=== PATIENT | male | born 1955 | race Caucasian/White ===

== ENCOUNTER 2017-03-02 03:45 | Observation (INO) | payer OTHER ==
[~2017-03-02] VITALS: Ht 177.8 cm; Wt 97.5 kg
[~2017-03-02 03:45] MED LIST: ASPIR 8181 MG PO; COUMADIN 5 MG TA5 MG PO; DICLOFENAC SOD75 MG PO; DOK100 M1 PO; FLOMAX(MONOGRA0.4 MG PO; KEFLEX 250MG C250 MG PO; METOPROLOL SUC100 M1 PO; OXYCONTIN15 MG PO; PERCOCET 325 MG1 TA2 PO; SIMVASTATIN10 MG PO; TREXIMET 500 MG1 TAB PO
[2017-03-02] MEDS ORDERED: ZOCOR20 M1 PO (08:11)
[2017-03-02] MEDS ORDERED: PLAVIX75 M1 PO (08:12)
[2017-03-02] MEDS ORDERED: CELEBREX200 M1 PO (08:13)
[2017-03-02] MEDS ORDERED: TREXIMET 85-501 EACH PO (08:24)
[2017-03-02 19:48] VITALS: BP 118/80
--- NOTE | 2017-03-02 19:48 | PN- Neurosurgical ---
Subjective Subjective: Postop check: Patient being observed overnight for 23 hours secondary to postoperative pain and increased blood loss intraoperatively. He is not well enough to be discharged home. He is comfortable at this time after receiving several doses of IV Dilaudid although he is drowsy. He denies feeling lightheaded or dizzy Objective Vital Signs and I&Os Vital signs stable, afebrile Intake & Output 03/02 1600 03/02 0800 03/02 0000 03/01 1600 03/01 0800 03/01 0000 Intake Total Output Total Balance Patient 215 lb Weight Physical Exam: Well-developed well-nourished no apparent distress. Drowsy but arousable HEENT: Atraumatic, extraocular motion intact Neck: Supple, no lymphadenopathy Respiratory: No respiratory distress Back: Incision clean dry and intact Extremities: No edema, no calf pain neurovascularly intact distally, no deficits., Neuro: Alert and oriented x3 Psych: Mood affect normal, normal memory normal judgment. Skin: Warm and dry, no rash on exposed skin Assessment/Plan Assessment/Plan Postoperative day #0 status post bilateral L2-3 hemilaminectomy and L3 4 left- sided hemilaminectomy secondary to spinal stenosis 23 hour observation for pain management and checking of labs in the morning, CBC , 1200 blood loss intraoperative, received 660 back via Cell [employer], monitor vital signs. Pain medication as needed. Valium as needed. alps for DVT prophylaxis. oob PT consult in am 23hrs of abx for prophylaxsis Core Measures Venous Thromboembolism VTE Risk Factors Age>40 No Mechanical VTE Prophylaxis d/t N/A MechProphylax Ordered No VTE Pharm Prophylaxis d/t LowRisk-No Interven Req'd
--- NOTE | 2017-03-02 19:50 | Admission Core Measures ---
Acute Coronary Syndrome (CM) ACS Core Measures Acute Coronary Syndrome Diagnosis No Congestive Heart Failure (NEW) CHF Core Measures Congestive Heart Failure Diagnosis No Cerebrovascular Accident (NEW) CVA Core Measures CVA/TIA Diagnosis No Venous Thromboembolism VTE Core Al (View Protocol) VTE Risk Factors Age>40 No Mechanical VTE Prophylaxis d/t N/A MechProphylax Ordered No VTE Pharm Prophylaxis d/t LowRisk-No Interven Req'd Problem List As ranked by this Provider includes Assessment & Plan 1. Spinal stenosis of lumbar region at multiple levels HOME MEDS Home Med List Celecoxib (Celebrex) 200 MG CAPSULE 1 CAP PO BID antiinflammatory (Reported) Clopidogrel Bisulfate (Plavix) 75 MG TABLET 1 TAB PO DAILY valve replacement (Reported) Metoprolol Succinate (Metoprolol Succinate XL) 100 MG TAB.ER.24H 1 TAB PO DAILY AORTIC VALVE REPLACEMENT (Reported) Simvastatin (Zocor*) 20 MG TABLET 1 TAB PO DAILY cholesterol (Reported) Sumatriptan Succ/Naproxen Sod (Treximet 85-500 MG Tablet) 85 MG-500 MG TABLET 1 TAB PO DAILY NEEDED MIGRAINE (Reported)
[2017-03-02 22:00] VITALS: BP 114/74
[2017-03-03] VITALS: BP 102/64
[2017-03-03 02:00] VITALS: BP 110/68
[2017-03-03 07:00] VITALS: BP 114/76
--- NOTE | 2017-03-03 07:36 | PN- Neurosurgical ---
See Addendum Subjective Subjective: Reports anticipated back / incisional pain, which improves with percocet. Tolerating diet. No nausea. Not yet out of bed, but anticipates getting up with PT this morning. Denies dizziness. No shortness of breath. No chest pains. Voiding without difficulty. He anticipates going home today. He would prefer prescriptions going to [facility] in [place]. Objective Vital Signs and I&Os Vital Signs Date Time Temp Pulse Resp B/P B/P Pulse O2 O2 Flow FiO2 Mean Ox Delivery Rate 03/03 0700 98.4 92 16 114/76 97 Room Air 03/03 0200 97.8 82 16 110/68 95 Nasal 1.0L Cannula 03/03 0000 97.6 84 16 102/64 94 Nasal 1.0L Cannula 03/03 0000 97 Nasal 2.0L Cannula 03/02 2200 97.3 82 16 114/74 98 Nasal 2.0L Cannula 03/02 1948 97.9 74 16 118/80 98 Nasal 2.0L Cannula 03/02 1930 99 Nasal 3.0L Cannula Intake & Output 03/03 0800 03/03 0000 03/02 1600 03/02 0800 03/02 0000 03/01 1600 Intake Total 1080 279 Output Total 950 50 Balance 130 229 Intake, IV 600 79 Intake, Oral 480 200 Output, Urine 950 50 Patient 215 lb 215 lb Weight Physical Exam: General - alert & oriented x 3. comfortable. no acute distress. Lungs - clear bilaterally. no w/r/r. Cardiac - reg. s1s2. +3/6 harsh systolic ejection murmur. Abdomen - soft. nontender. Extremities - warm bilaterally. no c/c/e. calves soft and nontender b/l. sensation equal. 5/5 df/pf/ehl. Current Medications: Current Medications Sig/Malcolm Start time Last Medication Dose Route Stop Time Status Admin Acetaminophen 650 MG Q6P PRN 03/02 1900 AC PO Acetaminophen 1,000 MG .STK-MED ONE 03/02 1331 DC IV 03/02 1332 Cefazolin Sodium 2 GM IQ8 03/03 0000 AC 03/02 N/A 1 UNIT IV 03/03 0829 2347 Cefazolin Sodium 2 GM ONCE ONE 03/02 1755 DC N/A 1 UNIT IV 03/02 1824 Cefazolin Sodium 2,000 MG ONCE 03/02 0000 DC IV 03/02 2359 Dextrose/Sodium 1,000 ML .[id number] 03/02 190 AC 03/02 Chloride IV 1953 Diazepam 5 MG TID PRN 03/02 1830 AC 03/02 PO 2237 Fentanyl Citrate 100 MCG .STK-MED ONE 03/02 08 DC IM 03/02 0824 Hydromorphone HCl 1 MG Q2-3 HRS NEEDED.. 03/02 1900 AC 03/02 IV 2206 Hydromorphone HCl 2 MG .STK-MED ONE 03/02 0822 DC IM 03/02 0823 Ketorolac 30 MG Q8P PRN 03/02 1900 AC 03/02 Tromethamine IV 03/05 1859 2039 Meperidine HCl 50 MG .STK-MED ONE 03/02 1420 DC IM 03/02 1421 Meperidine HCl 50 MG .STK-MED ONE 03/02 1345 DC IM 03/02 1346 Metoprolol Succinate 100 MG DAILY 03/03 1000 AC PO Midazolam HCl 2 MG .STK-MED ONE 03/02 08 DC IM 03/02 0824 Ondansetron HCl 4 MG Q6P PRN 03/02 1900 AC IV Oxycodone/ 1 TAB Q4P PRN 03/02 1900 AC Acetaminophen PO Oxycodone/ 2 TAB Q4P PRN 03/02 1900 AC 03/03 Acetaminophen PO 0325 Promethazine HCl 12.5 MG Q6P PRN 03/02 1900 AC IV 03/09 1829 Assessment/Plan Assessment/Plan This 61 year old male with hx htn, hx tia, hx AVR, is POD#1 s/p L2 complete laminectomy, L3 left hemilaminectomy and decompression, for L2-3 and L3-4 spinal stenosis and radiculopathy tolerating diet. d/c iv fluids pain control as ordered PT eval this morning oob/ambulation alps - dvt ppx betsy-operative ancef f/u labs placed in observation for anticipated discharge to home today will d/w Core Measures Venous Thromboembolism VTE Risk Factors Age>40 No Mechanical VTE Prophylaxis d/t N/A MechProphylax Ordered No VTE Pharm Prophylaxis d/t LowRisk-No Interven Req'd
--- NOTE | 2017-03-03 07:47 | Surg Short-stay <48hrs Dis Sum ---
Visit Information Visit Dates Admission Date: 03/02/17 Discharge Date: 03/03/17 Surgical Short Stay DC Summary Admission Diagnosis: L2-3 and L3-4 spinal stenosis and radiculopathy Final Diagnosis: same as above, s/p s/p L2 complete laminectomy, L3 left hemilaminectomy and decompression Procedure(s): SURGERY DATE: 03/02/17 L2 complete laminectomy, L3 left hemilaminectomy and decompression Summary/Significant Findings: Electively scheduled L2 complete laminectomy, and L3 left hemilaminectomy and decompression done by for pre-op diagnosis of L2-3 and L3-4 spinal stenosis and radiculopathy. Placed in observation status overnight for pain control and PT eval. Stable for discharge to home on post-op day#1 once evaluated by PT, pain controlled, and tolerating a diet. His plavix was held pre -operatively and post-operatively. This was discussed with his switch foreman, , who stated he is comfortable with him being off plavix for as long as necessary as he does not have coronary artery disease. Condition at Discharge: stable Discharge Disposition: home or self care Discharge instructions provided to patient/family: Yes Post discharge follow-up plan: 2 week follow up appointment he has been advised to remain off plavix until further advised by staple removal around post-op day#14 Copies to: Farhad Dunn MD; Donny FORMAN,Kermit Cornejo
--- NOTE | 2017-03-03 07:51 | Patient Discharge Instructions ---
Discharge Instructions General Discharge Information You were seen/treated for: L2-3 and L3-4 spinal stenosis and radiculopathy You had these procedures: Surgery date: 03/02/17 L2 complete laminectomy, L3 left hemilaminectomy and decompression Watch for these problems: fever>101.3, increased pain, redness/swelling/drainage, dizziness, shortness of breath, chest pains Call Surgeon to remove: [place] No bath, but you may shower: Yes Other wound care: dry guaze dressing change daily. will need kwan removed around post-op day#14 Diet Continue normal diet: Yes Recommended Diet: Heart Healthy Activity Full Activity/No Limits: No Activity Self Limited: Yes Pounds, do NOT lift more than: 10 Activity Limited to: Weight bear as tolerated Other activity limits: no heavy lifting. no strenuous activity. Acute Coronary Syndrome Inclusion Criteria At DC or during hospital stay patient has or had the following: ACS DIAGNOSIS No Discharge Core Measures Meds if any: Prescribed or Continued at Discharge Meds if any: NOT Prescribed or Continued at Discharge Congestive Heart Failure Inclusion Criteria At DC or during hospital stay patient has or had the following: CHF DIAGNOSIS No Discharge Core Measures Meds if any: Prescribed or Continued at Discharge Meds if any: NOT Prescribed or Continued at Discharge Cerebrovascular accident Inclusion Criteria At DC or during hospital stay patient has or had the following: CVA/TIA Diagnosis No Discharge Core Measures Meds if any: Prescribed or Continued at Discharge Meds if any: NOT Prescribed or Continued at Discharge Venous thromboembolism Inclusion Criteria VTE Diagnosis No VTE Type NONE VTE Confirmed by (Test) NONE Discharge Core Measures - Per Current guidelines, there needs to be overlap - treatment for the first 5 days of Warfarin therapy. - If discharged on Warfarin prior to 5 days of - overlap therapy, the patient will need to be - assessed for post discharge needs including - *Post discharge parental anticoagulation - *Warfarin and/or parental anticoagulation education - *Follow up date to check INR post discharge At least 5 days overlap therapy as Inpatient No Meds if any: Prescribed or Continued at Discharge Note: Overlap Therapy is Warfarin and Anticoagulant Meds if any: NOT Prescribed or Continued at Discharge
[2017-03-03] MEDS ORDERED: PERCOCET 5-3251 EACH PO ×2 (07:55→08:33)
[2017-03-03] MEDS ORDERED: VALIUM5 M2 PO ×2 (07:55→08:33)
[2017-03-03] MEDS ORDERED: COLACE100 M1 PO ×2 (07:55→08:33)
[2017-03-03 08:21] VITALS: BP 134/72
[2017-03-03 09:25] LABS: ABSOLUTE BASOPHIL COUNT 0 /CUMM (0.0-0.2); ABSOLUTE EOSINOPHIL COUNT 0 /CUMM (0.0-0.7); ABSOLUTE GRANULOCYTE CT 14.4 /CUMM (1.4-6.5); ABSOLUTE LYMPH COUNT 1.2 /CUMM (1.2-3.4); ABSOLUTE MONOCYTE COUNT 1.7 /CUMM (0.10-0.60); BASOPHIL % 0 % (0.0-2.0); EOSINOPHIL % 0 % (0-5); MEAN CORPUSCULAR HGB 31.9 PG (27.0-31.0); MEAN CORPUSCULAR HGB CONC 34.3 G/DL (33.0-37.0); MEAN PLATELET VOLUME 8.5 FL (7.4-10.4); PLATELET COUNT 121 /CUMM (130-400); RBC DISTRIBUTION WIDTH 12.9 % (11.5-14.5); RED BLOOD CELL CT 3.85 /CUMM (4.70-6.10)
[2017-03-03 09:28] LABS: GRANULOCYTE % 83.1 % (42.2-75.2)
[2017-03-03 09:39] LABS: HEMATOCRIT 35.8 % (42-52)
--- NOTE | 2017-03-03 10:26 | RADIOLOGY REPORT ---
EXAMINATION: CR ABDOMEN/INTRAOPERATIVE FLUOROSCOPY CLINICAL INDICATION: L2-L3, L3-L4 decompressive laminectomy in OR. COMPARISON: CT scan of the lumbar spine dated 01/27/2017. TECHNIQUE/FINDINGS: Fluoroscopic equipment was dedicated to the operating room for the performance of an intraoperative procedure. Several (3) spot films were acquired and are archived in PACS detailing surgical marker overlying the posterior facet joint of L2-L3. Please refer to operative notes for procedural detail. FLUOROSCOPY TIME: 0.2 minutes. IMPRESSION: Administrative dictation for intraoperative fluoroscopy and image archiving in PACS. Please refer to operative notes for details.
[2017-03-03 10:36] LABS: WHITE BLOOD CELL COUNT 17.3 /CUMM (4.8-10.8)
[2017-03-03 14:06] VITALS: BP 100/58
--- NOTE | 2017-03-12 18:45 | Operative Report ---
Operative/Inv Procedure Report Surgery Date: 03/02/17 Name of Procedure: 1) L2 Bilateral Decompressive Hemilaminotomies With L2-L3 Bilateral Partial Medial Facetectomies, Medial Nerve Root Exit Zone (Right Expanding And Left Extensive) Foraminotomies And Complete Decompression Of Traversing And Exiting Neural Elements (Shamika/Tsering, P.A.-C) 2) L3 Left Decompressive Hemilaminotomy With L3-L4 Left Partial Medial Facetectomy, Medial Nerve Root Exit Zone Extensive Foraminotomy And Complete Decompression Of Traversing And Exiting Neural Elements (Shamika/Tsering, P.A.- C) Pre-Operative Diagnosis: Primary Surgically Treated Diagnoses: 1) L2-L3 Multizone (Central Canal, Bilateral Lateral Recess And Bilateral Foraminal) And L3-L4 Left Lateral Zone (Lateral Recess And Foraminal) Disk Space Level Lumbar Spinal Stenosis 2) L2-L3 And L3-L4 Lumbar Spondylosis Associated With Left Lumbar Radiculopathy 3) L2-L3 And L3-L4 Lumbar Intervertebral Disc Disorder Associated With Left Lumbar Radiculopathy 4) Left Lower Extremity Mid-Lumbar Distribution Positional And Claudicating Radiculopathy (Radiating Pain Without Other Symptoms) 5) L2-L3 And L3-L4 Lumbar Spondylosis 6) L2-L3 And L3-L4 Hypertrophic And Neurocompressive Degenerative Lumbar Facet Arthropathy And Osteoarthritis Post-Operative Diagnosis: Same as preoperative diagnosis list with the addition of: Intraoperative And Postoperative Diagnoses Relevant To Postoperative Care: 1) L2-L3 And L3-L4 Potential Increased Postoperative (Post-Decompression) Microinstability Requiring Acute Postoperative Activity Limitation And Circumferential Lumbar Compression Orthosis Use For Optimized Symptom Control, Stabilization, Postoperative Function And Overall Outcome 2) Expected Acute Postoperative Lumbar Region Pain Requiring Potentially Sedating Postoperative Intravenous Narcotic Analgesic Pain Medication, Prolonged Recovery Room Observation And Final Assessment Of Symptom Control And Independent Functional Status Per Protocol Prior To Determination Of Safety For Same Day Home Discharge Status Following Standard And Uncomplicated But Extensive Multilevel Lumbar Decompression 3) Expected Acute Postoperative Lumbar Region Muscular Spasm Requiring Potentially Sedating Postoperative Muscle Relaxant Medication Following Extensive Surgery Described Above 4) L2 And L2-L3 Bilateral With L3 And L3-L4 Right Acute Lumbar Posterior And Posterolateral Osseous Decompression Postprocedural Status Estimated Blood Loss: 1200 ml estimated blood loss with 660 ml cell saver return Surgeon/Animal Surgeon: SHAMIKA FORMANCANDY - Primary Admitting Orthopaedic Surgeon Surgical Providers: Candy Wick M.D. - Orthopaedic Spine Surgeon Sachin Cagle P.A.-C - Sub Plant Manager Anesthesia: general endotracheal tube Monitors: Standard general anesthesia and other perioperative monitoring was performed per anesthesia. Refer to anesthesia and intraoperative electrophysiological monitoring records for details. IV Fluids: Standard anesthesia fluid management was performed without requirement for additional or emergent fluid resuscitation. Refer to anesthesia records for details. Implants: Implants Placed: None Graft Placed: None Urine Output: Refer to anesthesia records for details. Drains: None Specimens: None Complications: None Operative/Procedure Note Note: Preoperative Holding Area Assessment/Preparation: The patient was evaluated in the preoperative holding area prior to surgery and no clinical changes or contraindications to surgical intervention were documented compared to the preoperative office and clearance evaluations. His left proximal lower extremity radiating positional and claudicating pain was unchanged from clearance examinations. As in the office, the patient was otherwise grossly neurovascularly intact in both lower extremities to standard testing. There were no multiple, bilateral or sacral root distribution sensory, motor, reflex, coordination or ambulatory changes to suggest acute increase in neural element compression or impending cauda equina syndrome that might be associated with increased neurological intraoperative risk based on preoperative assessment. The surgical plan and site were confirmed with the patient and preoperative paperwork was finalized. The region of the intended surgical site was cleansed, prepped and marked per protocol. The primary surgeon, anesthesia care team members, and operating room staff confirmed the patient identity, surgical procedure, and operative site as well as other clinical details with the patient in an initial documented preoperative confirmation (awake time out ) prior to the administration of sedation or anesthesia. The patient confirmed that he had discontinued his anticoagulant medication at least 7 days prior to surgery. It should be noted that, despite the patient holding his Plavix the recommended number of days prior to surgery, his blood loss was greater than usual for this type of procedure possibly associated with lingering anticoagulant effect particularly in the face of epidural venous congestion secondary to spinal stenosis. His history of anticoagulant treatment along with the plan for multilevel and (at least one level) bilateral osseous resection and decompression warranted use of cell saver for this procedure. Prior to receiving any preoperative medications, he also confirmed his NPO status since midnight. Surgical Procedure: The procedure was performed by Dr. Wick who was present and served as the primary surgeon for all critical intraoperative and perioperative decisions and interventions. The assistance of a specialty trained surgical physician anatomic pathology assistant was critical for safe completion of all phases of the procedure, particularly for maintenance of clear visualization in the operative field and for protected neural element retraction. Sachin Cagle P.A.-C assisted in this capacity throughout each critical phase of the procedure. Set-Up/Positioning/Exposure - The patient was brought to the operating room in stable condition and underwent uncomplicated induction of general anesthesia, intubation, and placement of all appropriate monitors, lines and catheters without difficulty. Administration of 2 grams of IV Ancef based on patient body mass was given for surgical prophylaxis and was completed at least 30 and less than 60 minutes prior to making an incision. The patient was positioned prone on the Omer table in typical fashion for a mid-lumbar decompression taking care to protect and stabilize the spine during transfer, avoid positions of nerve stretch, pad all pressure points, and support the head without any pressure on the eyes using a foam head rest and head-holding frame. The arms were abducted less than 90 degrees at the shoulders, flexed less than 90 degrees at the elbows and supported on well-padded arm-boards with additional foam padding from the axillary regions to the hands with all pressure points either fully padded or suspended without any contact at all between pads. The primary surgeon, anesthesia care team, and operating room staff again documented the patient identity, surgical procedure, and operative site as well as other clinical details in a final documented confirmation (final time out) prior to beginning the procedure. Loupe magnification was used throughout the appropriate portions of the procedure. After sterile prep and drape using standard techniquewith DuraPrep, an incision was mapped, infiltrated with 0.5% Marcaine local anesthetic with epinephrine, and made extending longitudinally from the superior tip of the L2 spinous process to the superior tip of the L4 spinous process overlying the intended L2, L2-L3, L3 and L3-L4 operative laminar and interlaminar levels. This incision extended upward from the superior margin of his previous lower lumbar incision which was well healed. The two incisions only overlapped slightly with the subcutaneous and deep dissection for thus surgery being fully separate from his old surgical site. Hemostasis was achieved using Bovie and Bipolar electrocautery beginning with the incision and continuing throughout the procedure with settings appropriate to each progressive level. The lumbosacral fascia was divided over the left side of the presumptive L2 and superior L3 spinous process tips as well as the bridging interspinous ligament segment based on preoperative palpation and fluoroscopic localization using the Bovie electrocautery which was also used to maintain hemostasis throughout the exposure. Care was taken to preserve the interspinous ligament so as to maintain optimal postoperative stability and motion segment ligamentous tension. The dissection was then carried down the left side of the middle and inferior L2 spinous process, the interspinous space and the superior margin of the L3 spinous process and then extended laterally to expose the corresponding laminae and interlaminar space at that level out to the edge of the left facet capsule which was preserved. The Lim retractor was placed with lateral blunt serrated ("toothed") blade and medial interspinous hook of appropriate length to provide optimal retraction and visualization. The dissected interlaminar space was marked with a curved curette placed under the inferior leading edge of the superior lamina and confirmed to be at the intended interspace on cross-table lateral radiograph. Intraoperative findings of multilevel lumbar advanced degenerative disk disease correlated well with the preoperative radiographic studies and no obvious interval change or additional abnormality was noted. The alignment of the spine on this intraoperative localization radiograph was noted to be normal and unchanged from preoperative office studies. There was no evidence of gross or occult instability on this intraoperative study to suggest that operative stabilization would be required. Once the appropriate levels were fluoroscopically confirmed, dissection was continued bilaterally to fully expose both intended interlaminar spaces at the L2-L3 level and the left interlaminar space at L3-L4 out to the capsules of the facet joints which were preserved. Attention was then turned to the decompression portion of the procedure. Hemilaminotomy/Discectomy/Decompression - The lateral margin of the pars interarticularis of L2 and L3 were identified so as to insure that the hemilaminotomy did not approach, thin or destabilize this region. Left L2 inferior hemilaminotomy was first performed by thinning the inferior edge of the L2 lamina in a tapered fashion using the [place] drill followed by piecemeal resection of the deep laminar cortex using Kerrison rongeurs after dissecting under the leading edge with a curved curette to free any underlying adhesions. The inferior hemilaminotomy of L2 was nearly sufficient to adequately and safely access and decompress the canal in this case. Only minimal additional interlaminar hemilaminotomy (with resection of the superior margin of L3) was required to completely decompress the most severe interlaminar region of the stenosis. The L2 left hemilaminotomy was carried out laterally to the level of the medial margin of the facet superficially and to the level of the medial wall of the L3 pedicle within the canal taking care not to violate the posterior facet capsule or excessively thin the pars interarticularis. This dissection provided sufficient canal access in this patient to allow partial medial facetectomy and lateral canal decompression without requiring a full laminectomy. The cephalad edge of the ligamentum flavum was dissected from its laminar attachment and elevated with a curved curette to insure that there were no epidural adhesions dorsally. The ligamentum was quite thickened, particularly in the dorsolateral canal associated with the facet hypertrophy documented on preoperative studies, and appeeared to be a significant contribution to the lateral recess stenosis. The elevated ligamentum was fully resected within the hemilaminotomy opening using Kerrison rongeurs. This provided excellent exposure of the canal with full visualization and a safe plane for access to the hypertrophic and compresssive medial wall of the facet. A partial medial facetectomy was performed in piecemeal fashion using Kerrison rongeurs after careful dissection to define a clear plane all the way to the medial pedicle wall and formainal opening using a curved curette. No significant adherent, tethering or compressive epidural fibrosis was identified and so no epidural or perineural dissection, neurolysis or mobilization of the neural elements was required. There was no significant disk herniation suggested on preoperative MRI and no intraoperative evidence of neural element elevation or other finding to suggest a residual unidirectional component of compression from the disk spaces or ventral epidural space persistent following dorsal and dorsolateral decompression. Consequently, no ventral dissection was required or performed in this case. The axilla of the traversing root was checked and no fibrotic tethering was found that might cause acute angle "kinking" or other focal compression at the exit of the nerve from the thecal sac. Thus there was no significant dissection required in the axillary zone. Once the lateral recess decompression was completed, the medial foraminal nerve root exit zone was readily accessible. This medial zone was quite stenotic by palpation with a nerve hook confirming the preoperative MRI and CT findings. Undercutting extensive foraminotomy was performed to the level of the mid- foraminal (mid-pedicular) level using Kerrison rongeurs. Once this decompression was complete the foramen was found to be widely patent with both a [place] instrument passed dorsally and a nerve hook passed in all zones adjacent to the exiting root without resistance. Attention was then turned to the right side at L2-L3 and the left side at L3-L4 which were addressed using identical technique to that described above including exposure, hemilaminotomy, partial medial faceteectomies and foraminotomies ( expanding on the right, extensive to th mid-foraminal, mid-pedicular level on the more symptomatic anc compressed left side). As at the L2-L3 left site, a similar degree of central, lateral recess and foraminal degenerative hypertrophy and stenosis was identified causing traversing and exiting neural element compression consistent with the preoperative radiologic findings. After decompression all neural elements exited freely. Moderate irritability and hyperactive neural activity associated with muscle firing was noted from even the very gentle mechanical stimulus required for decompression. These hyperactive responses ceased almost immediately once the decompression was completed. Hemostasis of osseous and epidural bleeding was achieved using Thrombin soaked Gelfoam and paddies gently applied and removed by irrigation with all bleeding controlled. Where necessary, bleeding from the laminectomy edges was controlled with a small amount of bone wax applied using the back of a [place] with any residua removed. Closure/Recovery - The surgical site was thoroughly irrigated and hemostasis was carefully achieved prior to closure. FloSeal (5 cc) was placed in the epidural space and along the margins of the laminotomy sites where helpful for osseous, soft tissue and epidural hemostasis. Several pieces of Thrombin-soaked Gelfoam was cut to match the size of the hemilaminotomy defects and placed over the dorsal surface of the lateral thecal sac and traversing nerve root within each opening so as to minimize epidural fibrotic adhesions to the decompressed neural elements. The surgical site was found to be dry at the end of the procedure and consequently no drain was needed. Initial counts were correct prior to closure. The deep lumbar muscular layer was reapproximated to the spinous process and interspinous tissue using #0 Vicryl interrupted suture technique so as to minimize open subfascial space for hematoma collection while facilitating reattachment to the osseous structures. The fascial layer was reapproximated in the midline and secured to the spinous process tips and interspinous process ligament segments in a [id number] closure so as to reestablish musculoskeletal mechanics as close to normal as possible using #0 Vicryl interrupted, [id number] suture technique. The deep suprafascial closure was performed with #2-0 Vicryl interrupted, simple suture technique. The superficial subcutaneous layer was closed with #3-0 undyed Vicryl inverted, interrupted, simple sutures. The skin was closed using kwan with the edges everted. A standard, sterile Xeroform dressing was placed, covered with folded fluff 6x6 gauze and ABD pads and held with [place] with good surgical site and bilateral drain site coverage. All counts were correct prior to removing the drapes. Recovery Room Assessment: The patient was transported to the recovery room in stable condition where gross neurological examination showed normal function with no deficits or worsening compared to his pre-operative assessments on initial recovery from anesthesia. In fact, the patient reported subjective improvement in his left proximal lower extremity resting and positional radiating pain compared to preoperative assessment. The response of his primary claudicating component of radiating pain will obviously have to await mobilization postoperatively, however the patient is quite encouraged at this early timepoint as he feels that his nagging baseline of resting radiculopathy is already detectably improved. The patient will follow the usual postoperative protocol for mid-lumbar decompressive discectomy with some adjustments and accommodations made to the standard protocol because of the degree of preoperative multilevel stenosis, multilevel degenerative changes and desire to return as early as possible to a high level of function including vigorous work and recreational activities. His postoperative care plan will include early mobilization, oral medication pain control and same day home discharge planning with instructions to mobilize frequently but to avoid lumbar motion or prolonged unsupported upright sitting. Given the extent of his surgery and his comorbidities, it would be quite appropriate for the patient to require overnight observation and to delay discharge plans until tomorrow morning particularly if pain control or mobilization are difficult especially given that the patient lives alone. Primarily because of his concomitant moderate degenerative disk disease he will use a compression brace during the initial phase of healing for both stability and some distraction so as to optimize fibrous intervertebral disk space stabilization and healing. Lower extremity (particularly gentle hip and knee) motion is encouraged to promote longitudinal nerve motion and minimize fibrous neural tethering during the fibrous consolidation and motion segment stabilization healing phase. Outpatient rehabilitation program will be arranged either through the office or at school to begin slowly but progressively at approximately 4 weeks after surgery assuming standard and uncomplicated postoperative course and following clearance at initial postoperative follow-up assessment. Discharge Disposition: PACU CC: Shamika FORMAN,Candy Cam; Sachin Cordero no clinical changes or contraindications to surgical intervention were documented compared to the preoperative office and clearance evaluations. His left proximal lower extremity radiating positional and claudicating pain was unchanged from clearance examinations. As in the office, the patient was otherwise grossly neurovascularly intact in both lower extremities to standard testing. There were no multiple, bilateral or sacral root distribution sensory, motor, reflex, coordination or ambulatory changes to suggest acute increase in neural element compression or impending cauda equina syndrome that might be associated with increased neurological intraoperative risk based on preoperative assessment. The surgical plan and site were confirmed with the patient and preoperative paperwork was finalized. The region of the intended surgical site was cleansed, prepped and marked per protocol. The primary surgeon, anesthesia care team members, and operating room staff confirmed the patient identity, surgical procedure, and operative site as well as other clinical details with the patient in an initial documented preoperative confirmation (awake time out ) prior to the administration of sedation or anesthesia. The patient confirmed that he had discontinued his anticoagulant medication at least 7 days prior to surgery. It should be noted that, despite the patient holding his Plavix the recommended number of days prior to surgery, his blood loss was greater than usual for this type of procedure possibly associated with lingering anticoagulant effect particularly in the face of epidural venous congestion secondary to spinal stenosis. His history of anticoagulant treatment along with the plan for multilevel and (at least one level) bilateral osseous resection and decompression warranted use of cell saver for this procedure. Prior to receiving any preoperative medications, he also confirmed his NPO status since midnight. Surgical Procedure: The procedure was performed by Dr. Wick who was present and served as the primary surgeon for all critical intraoperative and perioperative decisions and interventions. The assistance of a specialty trained surgical physician anatomic pathology assistant was critical for safe completion of all phases of the procedure, particularly for maintenance of clear visualization in the operative field and for protected neural element retraction. Sachin Cagle P.A.-C assisted in this capacity throughout each critical phase of the procedure. Set-Up/Positioning/Exposure - The patient was brought to the operating room in stable condition and underwent uncomplicated induction of general anesthesia, intubation, and placement of all appropriate monitors, lines and catheters without difficulty. Administration of 2 grams of IV Ancef based on patient body mass was given for surgical prophylaxis and was completed at least 30 and less than 60 minutes prior to making an incision. The patient was positioned prone on the Omer table in typical fashion for a mid-lumbar decompression taking care to protect and stabilize the spine during transfer, avoid positions of nerve stretch, pad all pressure points, and support the head without any pressure on the eyes using a foam head rest and head-holding frame. The arms were abducted less than 90 degrees at the shoulders, flexed less than 90 degrees at the elbows and supported on well-padded arm-boards with additional foam padding from the axillary regions to the hands with all pressure points either fully padded or suspended without any contact at all between pads. The primary surgeon, anesthesia care team, and operating room staff again documented the patient identity, surgical procedure, and operative site as well as other clinical details in a final documented confirmation (final time out) prior to beginning the procedure. Loupe magnification was used throughout the appropriate portions of the procedure. After sterile prep and drape using standard techniquewith DuraPrep, an incision was mapped, infiltrated with 0.5% Marcaine local anesthetic with epinephrine, and made extending longitudinally from the superior tip of the L2 spinous process to the superior tip of the L4 spinous process overlying the intended L2, L2-L3, L3 and L3-L4 operative laminar and interlaminar levels. This incision extended upward from the superior margin of his previous lower lumbar incision which was well healed. The two incisions only overlapped slightly with the subcutaneous and deep dissection for thus surgery being fully separate from his old surgical site. Hemostasis was achieved using Bovie and Bipolar electrocautery beginning with the incision and continuing throughout the procedure with settings appropriate to each progressive level. The lumbosacral fascia was divided over the left side of the presumptive L2 and superior L3 spinous process tips as well as the bridging interspinous ligament segment based on preoperative palpation and fluoroscopic localization using the Bovie electrocautery which was also used to maintain hemostasis throughout the exposure. Care was taken to preserve the interspinous ligament so as to maintain optimal postoperative stability and motion segment ligamentous tension. The dissection was then carried down the left side of the middle and inferior L2 spinous process, the interspinous space and the superior margin of the L3 spinous process and then extended laterally to expose the corresponding laminae and interlaminar space at that level out to the edge of the left facet capsule which was preserved. The Lim retractor was placed with lateral blunt serrated ("toothed") blade and medial interspinous hook of appropriate length to provide optimal retraction and visualization. The dissected interlaminar space was marked with a curved curette placed under the inferior leading edge of the superior lamina and confirmed to be at the intended interspace on cross-table lateral radiograph. Intraoperative findings of multilevel lumbar advanced degenerative disk disease correlated well with the preoperative radiographic studies and no obvious interval change or additional abnormality was noted. The alignment of the spine on this intraoperative localization radiograph was noted to be normal and unchanged from preoperative office studies. There was no evidence of gross or occult instability on this intraoperative study to suggest that operative stabilization would be required. Once the appropriate levels were fluoroscopically confirmed, dissection was continued bilaterally to fully expose both intended interlaminar spaces at the L2-L3 level and the left interlaminar space at L3-L4 out to the capsules of the facet joints which were preserved. Attention was then turned to the decompression portion of the procedure. Hemilaminotomy/Discectomy/Decompression - The lateral margin of the pars interarticularis of L2 and L3 were identified so as to insure that the hemilaminotomy did not approach, thin or destabilize this region. Left L2 inferior hemilaminotomy was first performed by thinning the inferior edge of the L2 lamina in a tapered fashion using the [place] [employer] drill followed by piecemeal resection of the deep laminar cortex using Kerrison rongeurs after dissecting under the leading edge with a curved curette to free any underlying adhesions. The inferior hemilaminotomy of L2 was nearly sufficient to adequately and safely access and decompress the canal in this case. Only minimal additional interlaminar hemilaminotomy (with resection of the superior margin of L3) was required to completely decompress the most severe interlaminar region of the stenosis. The L2 left hemilaminotomy was carried out laterally to the level of the medial margin of the facet superficially and to the level of the medial wall of the L3 pedicle within the canal taking care not to violate the posterior facet capsule or excessively thin the pars interarticularis. This dissection provided sufficient canal access in this patient to allow partial medial facetectomy and lateral canal decompression without requiring a full laminectomy. The cephalad edge of the ligamentum flavum was dissected from its laminar attachment and elevated with a curved curette to insure that there were no epidural adhesions dorsally. The ligamentum was quite thickened, particularly in the dorsolateral canal associated with the facet hypertrophy documented on preoperative studies, and appeeared to be a significant contribution to the lateral recess stenosis. The elevated ligamentum was fully resected within the hemilaminotomy opening using Kerrison rongeurs. This provided excellent exposure of the canal with full visualization and a safe plane for access to the hypertrophic and compresssive medial wall of the facet. A partial medial facetectomy was performed in piecemeal fashion using Kerrison rongeurs after careful dissection to define a clear plane all the way to the medial pedicle wall and formainal opening using a curved curette. No significant adherent, tethering or compressive epidural fibrosis was identified and so no epidural or perineural dissection, neurolysis or mobilization of the neural elements was required. There was no significant disk herniation suggested on preoperative MRI and no intraoperative evidence of neural element elevation or other finding to suggest a residual unidirectional component of compression from the disk spaces or ventral epidural space persistent following dorsal and dorsolateral decompression. Consequently, no ventral dissection was required or performed in this case. The axilla of the traversing root was checked and no fibrotic tethering was found that might cause acute angle "kinking" or other focal compression at the exit of the nerve from the thecal sac. Thus there was no significant dissection required in the axillary zone. Once the lateral recess decompression was completed, the medial foraminal nerve root exit zone was readily accessible. This medial zone was quite stenotic by palpation with a nerve hook confirming the preoperative MRI and CT findings. Undercutting extensive foraminotomy was performed to the level of the mid- foraminal (mid-pedicular) level using Kerrison rongeurs. Once this decompression was complete the foramen was found to be widely patent with both a Dottie instrument passed dorsally and a nerve hook passed in all zones adjacent to the exiting root without resistance. Attention was then turned to the right side at L2-L3 and the left side at L3-L4 which were addressed using identical technique to that described above including exposure, hemilaminotomy, partial medial faceteectomies and foraminotomies ( expanding on the right, extensive to th mid-foraminal, mid-pedicular level on the more symptomatic anc compressed left side). As at the L2-L3 left site, a similar degree of central, lateral recess and foraminal degenerative hypertrophy and stenosis was identified causing traversing and exiting neural element compression consistent with the preoperative radiologic findings. After decompression all neural elements exited freely. Moderate irritability and hyperactive neural activity associated with muscle firing was noted from even the very gentle mechanical stimulus required for decompression. These hyperactive responses ceased almost immediately once the decompression was completed. Hemostasis of osseous and epidural bleeding was achieved using Thrombin soaked Gelfoam and paddies gently applied and removed by irrigation with all bleeding controlled. Where necessary, bleeding from the laminectomy edges was controlled with a small amount of bone wax applied using the back of a [place] with any residua removed. Closure/Recovery - The surgical site was thoroughly irrigated and hemostasis was carefully achieved prior to closure. FloSeal (5 cc) was placed in the epidural space and along the margins of the laminotomy sites where helpful for osseous, soft tissue and epidural hemostasis. Several pieces of Thrombin-soaked Gelfoam was cut to match the size of the hemilaminotomy defects and placed over the dorsal surface of the lateral thecal sac and traversing nerve root within each opening so as to minimize epidural fibrotic adhesions to the decompressed neural elements. The surgical site was found to be dry at the end of the procedure and consequently no drain was needed. Initial counts were correct prior to closure. The deep lumbar muscular layer was reapproximated to the spinous process and interspinous tissue using #0 Vicryl interrupted suture technique so as to minimize open subfascial space for hematoma collection while facilitating reattachment to the osseous structures. The fascial layer was reapproximated in the midline and secured to the spinous process tips and interspinous process ligament segments in a [id number] closure so as to reestablish musculoskeletal mechanics as close to normal as possible using #0 Vicryl interrupted, [id number] suture technique. The deep suprafascial closure was performed with #2-0 Vicryl interrupted, simple suture technique. The superficial subcutaneous layer was closed with #3-0 undyed Vicryl inverted, interrupted, simple sutures. The skin was closed using kwan with the edges everted. A standard, sterile Xeroform dressing was placed, covered with folded fluff 6x6 gauze and ABD pads and held with [place] with good surgical site and bilateral drain site coverage. All counts were correct prior to removing the drapes. Recovery Room Assessment: The patient was transported to the recovery room in stable condition where gross neurological examination showed normal function with no deficits or worsening compared to his pre-operative assessments on initial recovery from anesthesia. In fact, the patient reported subjective improvement in his left proximal lower extremity resting and positional radiating pain compared to preoperative assessment. The response of his primary claudicating component of radiating pain will obviously have to await mobilization postoperatively, however the patient is quite encouraged at this early timepoint as he feels that his nagging baseline of resting radiculopathy is already detectably improved. The patient will follow the usual postoperative protocol for mid-lumbar decompressive discectomy with some adjustments and accommodations made to the standard protocol because of the degree of preoperative multilevel stenosis, multilevel degenerative changes and desire to return as early as possible to a high level of function including vigorous work and recreational activities. His postoperative care plan will include early mobilization, oral medication pain control and same day home discharge planning with instructions to mobilize frequently but to avoid lumbar motion or prolonged unsupported upright sitting. Given the extent of his surgery and his comorbidities, it would be quite appropriate for the patient to require overnight observation and to delay discharge plans until tomorrow morning particularly if pain control or mobilization are difficult especially given that the patient lives alone. Primarily because of his concomitant moderate degenerative disk disease he will use a compression brace during the initial phase of healing for both stability and some distraction so as to optimize fibrous intervertebral disk space stabilization and healing. Lower extremity (particularly gentle hip and knee) motion is encouraged to promote longitudinal nerve motion and minimize fibrous neural tethering during the fibrous consolidation and motion segment stabilization healing phase. Outpatient rehabilitation program will be arranged either through the office or at school to begin slowly but progressively at approximately 4 weeks after surgery assuming standard and uncomplicated postoperative course and following clearance at initial postoperative follow-up assessment. Discharge Disposition: PACU CC: Shamika FORMAN,Candy Cam; Sachin Cordero
== END 2017-03-03 15:22 ==
LOC: STS 03:45 → PACUH 17:59 → 2NA 17:59 → ENRESERV 18:25 → ENTRNSPT 18:46 → CMPTRNSPT 19:11 → 2NA 19:24
PROVIDERS: Physician Assistant Surgical
DX: M51.16 Intervertebral disc disorders with radiculopathy, lumbar region (principal); M47.26 Other spondylosis with radiculopathy, lumbar region; M62.830 Muscle spasm of back; I10 Essential (primary) hypertension; I35.0 Nonrheumatic aortic (valve) stenosis; Z86.73 Personal history of transient ischemic attack (TIA), and cerebral infarction without residual deficits
CPT/HCPCS: 6030; 36415; 72100; 87086; 96374; 96375; 97116-GO; 97161-GP; 97530-GO; G0378; J0131; J0690; J1170; J1644; J1885; J2250; J2405; J2550; J7042; J7508